=== PATIENT | female | born 1990 | race Caucasian/White ===

== ENCOUNTER 2020-11-08 13:04 | Observation (INO) | payer OTHER ==
[2020-11-08 13:56] VITALS: BP 128/73; PULSE 81; O2SAT 100
== END 2020-11-08 14:05 | disposition home or self-care (01) ==
LOC: OB 13:04
PROVIDERS: ADMIT Obstetrics & Gynecology; ATTEND Obstetrics & Gynecology
DX: Z34.83 Encounter for supervision of other normal pregnancy, third trimester (principal); Z3A.33 33 weeks gestation of pregnancy
CPT/HCPCS: 59025; G0378

== ENCOUNTER 2020-11-15 11:55 | Observation (INO) | payer OTHER ==
[2020-11-15 12:14] VITALS: BP 127/81; PULSE 83
== END 2020-11-15 12:30 | disposition home or self-care (01) ==
LOC: OB 11:55
PROVIDERS: ADMIT Obstetrics & Gynecology; ATTEND Obstetrics & Gynecology
DX: Z34.83 Encounter for supervision of other normal pregnancy, third trimester (principal); Z3A.34 34 weeks gestation of pregnancy
CPT/HCPCS: 59025; G0378

== ENCOUNTER 2020-11-23 10:33 | Observation (INO) | payer OTHER ==
[2020-11-23 11:03] VITALS: BP 121/73; PULSE 75
== END 2020-11-23 11:25 | disposition home or self-care (01) ==
LOC: OB 10:33
PROVIDERS: ADMIT Obstetrics & Gynecology; ATTEND Obstetrics & Gynecology
DX: Z34.83 Encounter for supervision of other normal pregnancy, third trimester (principal); Z3A.35 35 weeks gestation of pregnancy
CPT/HCPCS: 59025; G0378

== ENCOUNTER 2020-11-30 08:50 | Observation (INO) | payer OTHER ==
[2020-11-30 10:55] VITALS: BP 122/79; PULSE 86
--- NOTE | 2020-11-30 11:43 | XRAY ---
Indication: growth. Two-dimensional OB ultrasound performed. Comparison: 2020. There is again a single viable intrauterine in cephalic presentation. heart rate 139 BPM. anatomy previously documented. Posterior placenta without abruption/previa. BPD measures 8.95 cm corresponding to 36 weeks 2 days. HC measures 31.74 cm corresponding to 35 weeks 5 days. AC measures 32.17 cm corresponding to 36 weeks 1 days. FL measures 7.10 cm corresponding to 36 weeks 3 days. Estimated weight 6 lbs. 5 oz., +/-15 ounces. Approximately 36 percentile. SYED is 18.9 cm. Impression: Single viable intrauterine with mean gestational age 36 weeks 1 day. Normal progression of . No new/acute findings.
== END 2020-11-30 11:35 | disposition home or self-care (01) ==
LOC: EDSTATUS 09:55 → OB 09:56
PROVIDERS: ADMIT Obstetrics & Gynecology; ATTEND Obstetrics & Gynecology
DX: O36.5930 Maternal care for other known or suspected poor fetal growth, third trimester, not applicable or unspecified (principal); Z3A.36 36 weeks gestation of pregnancy
CPT/HCPCS: 59025; 76816; G0378

== ENCOUNTER 2020-12-05 09:54 | Observation (INO) | payer OTHER ==
[2020-12-05 10:28] VITALS: BP 132/82; PULSE 73; O2SAT 100
== END 2020-12-05 10:46 | disposition home or self-care (01) ==
LOC: OB 09:54
PROVIDERS: ADMIT Obstetrics & Gynecology; ATTEND Obstetrics & Gynecology
DX: O36.5930 Maternal care for other known or suspected poor fetal growth, third trimester, not applicable or unspecified (principal)
CPT/HCPCS: 59025; G0378

== ENCOUNTER 2020-12-06 08:45 | Inpatient (IN) | payer OTHER ==
[2020-12-06] MEDS ORDERED: Zofran 4 MG/2 ML VIAL IV PRN (09:11)
[2020-12-06] MEDS: Lactated Ringers 1,000 ML IV SCH ×2 (09:27→20:00)
[2020-12-06] MEDS ORDERED: PITOCIN 30 UNITS/ LR 500 ML 30 UNITS/500 ML IV.SOLN. IV SCH (09:30)
[2020-12-06 09:39] LABS: Absolute Neutrophil Ct (ANC) 14.29 (1.4-6.9); BASOPHIL % 0.1 % (0.0-0.4); Basophil (Absolute #) 0.02 (0-0.4); Eosinophil % 0.4 % (0.00-5.0); Eosinophil (Absolute #) 0.06 (0-0.5); Hematocrit 41.8 % (35-47); Hemoglobin 13.8 gm/dl (12.0-16.0); Lymphocyte (Absolute #) 1.41 (1.0-4.6); Lymphocytes % 8.6 % (24.0-44.0); Mean Corpuscular Hemoglobin 31.4 pg (26-32); Mean Platelet Volume 10.2 fl (7.5-11.0); Monocyte (Absolute #) 0.65 (0.0-1.3); Neutrophil % 86.9 % (36.0-66.0); Platelet Count 282 K/mm3 (150-450); Red Cell Distribution Width 13.5 % (11.5-14.0); White Blood Count 16.4 K/mm3 (4.0-10.5)
[2020-12-06] MEDS ORDERED: XYLOCAINE 1% HCL 20 ML MDV IJ PRN (09:52)
[2020-12-06] MEDS ORDERED: NORCO 5/325 MG PO PRN (09:53)
[2020-12-06] MEDS ORDERED: TUCKS TP PRN (09:53)
[2020-12-06] MEDS ORDERED: Dermoplast Spray TP PRN (09:53)
[2020-12-06] MEDS ORDERED: CORTISONE 1% CREAM TP PRN (09:53)
[2020-12-06] MEDS ORDERED: LANSINOH 40 GM TOP PRN (09:53)
[2020-12-06] MEDS ORDERED: Mylicon 80MG PO PRN (09:53)
[2020-12-06] MEDS: MOTRIN 400 MG PO PRN ×2 (11:01→19:55)
[2020-12-06 12:35] LABS: Amphetamine,Urine NEGATIVE (NEGATIVE); Barbiturate,Urine NEGATIVE (NEGATIVE); Benzodiazepine,Urine NEGATIVE (NEGATIVE); Cocaine,Urine NEGATIVE (NEGATIVE); Methadone,Urine NEGATIVE (NEGATIVE); Opiate,Urine NEGATIVE (NEGATIVE); PCP,Urine NEGATIVE (NEGATIVE); THC,Urine NEGATIVE (NEGATIVE)
[2020-12-06] MEDS: TYLENOL EXTRA STRENGTH 500 MG PO PRN (16:19)
[2020-12-06] MEDS ORDERED: TRANEXAMIC ACID 1000 MG/10 ML 1,000 MG in Sodium Chloride 0.9% 100 ML BAG 100 ML IV ONE (18:36)
[2020-12-06] MEDS ORDERED: TRANEXAMIC ACID 1000 MG/10 ML ONE (18:39)
[2020-12-06] MEDS ORDERED: Sodium Chloride 0.9% 100 ML BAG 100 ML IV ONE (18:39)
[2020-12-06] MEDS: Colace 100 MG PO SCH (21:08)
[2020-12-06] MEDS ORDERED: Adacel Vial IM ONE (21:22)
[2020-12-07] MEDS: MOTRIN 400 MG PO PRN ×3 (02:17→15:11)
[2020-12-07 03:27] LABS: Absolute Neutrophil Ct (ANC) 12.18 (1.4-6.9); BASOPHIL % 0.1 % (0.0-0.4); Basophil (Absolute #) 0.02 (0-0.4); Eosinophil % 0.6 % (0.00-5.0); Eosinophil (Absolute #) 0.09 (0-0.5); Hematocrit 30.5 % (35-47); Lymphocyte (Absolute #) 2.01 (1.0-4.6); Lymphocytes % 13.2 % (24.0-44.0); Mean Cell Volume 96.2 fl (78-100); Mean Corpuscular Hemoglobin 31.5 pg (26-32); Mean Corpuscular Hgb Concent. 32.8 g/dl (32-36); Mean Platelet Volume 9.9 fl (7.5-11.0); Monocyte (Absolute #) 0.92 (0.0-1.3); Neutrophil % 80.1 % (36.0-66.0); Platelet Count 258 K/mm3 (150-450); Red Blood Count 3.17 M/mm3 (4.1-5.4); Red Cell Distribution Width 13.3 % (11.5-14.0); White Blood Count 15.2 K/mm3 (4.0-10.5)
[2020-12-07 04:09] VITALS: O2SAT 97
[2020-12-07] MEDS ORDERED: FERREX 150 PO SCH (10:00)
[2020-12-07] MEDS: Colace 100 MG PO SCH (10:09)
[2020-12-07] MEDS ORDERED: Adacel Vial IM ONE (12:00)
[2020-12-07] MEDS: TYLENOL EXTRA STRENGTH 500 MG PO PRN (12:14)
[2020-12-07 16:16] VITALS: BP 117/59; PULSE 75
== END 2020-12-07 17:25 | disposition home or self-care (01) | DRG 807 ==
LOC: OB 08:45 → OBSVTOIN 08:45
PROVIDERS: ADMIT Obstetrics & Gynecology; ATTEND Obstetrics & Gynecology
PROC: 10E0XZZ Delivery of Products of Conception, External Approach (ICD-10-PCS; principal; 2020-12-06)
DX: O80 Encounter for full-term uncomplicated delivery (principal); Z37.0 Single live birth; Z3A.37 37 weeks gestation of pregnancy
CPT/HCPCS: 36415; 59400; 80307; 84112; 85025; 87340; 90715; 96372; G0378; J2590; A9270-GY

== ENCOUNTER 2023-08-18 14:23 | Observation (INO) | payer OTHER ==
[2023-08-18 15:02] LABS: Appearance Cloudy (Clear); Bacteria None Seen /HPF (None Seen); Bilirubin Negative (Negative); Blood Negative (Negative); Epithelial Cells Moderate /HPF (None Seen); Glucose, Urine Negative (Negative); Hyaline Casts NONE SEEN /LPF (0-2); Ketones 15 (Negative); Leukocyte Esterase Small (Negative); Nitrite Negative (Negative); Ph 6.5 (4.6-8.0); Protein,Urine Dip Negative (Negative); RBC 0-2 /HPF (0-5); Specific Gravity <=1.005 (1.005-1.030); Urobilinogen 0.2 mg/dL (0.2)
[2023-08-18 15:09] LABS: ADD URINE CULTURE? NO (NO)
[2023-08-18 15:15] LABS: Amphetamine,Urine NEGATIVE (NEGATIVE); Barbiturate,Urine NEGATIVE (NEGATIVE); Benzodiazepine,Urine NEGATIVE (NEGATIVE); Cocaine,Urine NEGATIVE (NEGATIVE); Methadone,Urine NEGATIVE (NEGATIVE); Opiate,Urine NEGATIVE (NEGATIVE); PCP,Urine NEGATIVE (NEGATIVE); THC,Urine NEGATIVE (NEGATIVE)
[2023-08-18] MEDS ORDERED: CEFAZOLIN 2 GM-D5W BAG** 2 GM/50 ML ML IV STA (15:22)
[2023-08-18] MEDS ORDERED: Lactated Ringers 500 ML IV ONE (15:22)
[2023-08-18 15:27] VITALS: RESP 14
--- NOTE | 2023-08-18 17:23 | PCM.NOTE ---
Date and Time: 08/18/231714 Subjective Assessment: 33yo at 27 0/7 presented to labor and delivery complaining of contractions that are every 2-5 minutes and painful/uncomfortable. 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 Patient reports good movement. Patient denies SROM or vaginal bleeding. O- VSS afebrile. Chest: CTA, no rales, wheezes or rhonchi. Ht: RRR without murmur or gallop. Abdomen: Soft to palpation. Non-tender to palpation. Ext: No edema. Urine: Positive for WBC and Leukocytes. monitor: Baseline: 140 with variability present. Contractions are Q 2- 5minutes. Palpation moderate to mild. Since IV hydration patient states they are less intense than they were on presentation. CX: FT/Mulitparous/Long/-3/soft No change in cervical exam times two by same examiner. A- Uterine Irritability with Probable UTI P- IV hydration, Ancef 2 grams. Discharge to home. Continue to drink water ever y tet75-96 ounces. If Contractions return to painful she needs to return to labor and Delivery. OBJECTIVE DATA Vital Signs: Vital Signs - 24 hr Temp Pulse Resp BP BP Pulse Ox 08/18/23 15:00 97.8 F 82 14 137/74 100 08/18/23 14:40 97.6 F 82 14 137/74 100 Pain Assessment - Last Documented Pain Intensity 2 Intake and Output: Intake & Output 08/16/23 08/17/23 08/18/23 08/19/23 11:59 11:59 11:59 11:59 Weight 78.471 kg Lab Results: Lab Results-Last 24 Hours 08/18/23 08/18/23 Range/Units 14:50 14:50 Urine Color Yellow (Yellow) Urine Appearance Cloudy A (Clear) Urine pH 6.5 (4.6-8.0) Ur Specific [place] <=1.005 (1.005-1.030) Urine Protein Negative (Negative) Urine Glucose (UA) Negative (Negative) mg/dL Urine Ketones 15 A (Negative) Urine Blood Negative (Negative) Urine Nitrite Negative (Negative) Urine Bilirubin Negative (Negative) Urine Urobilinogen 0.2 (0.2) mg/dL Ur Leukocyte Esterase Small A (Negative) U Hyaline Cast (Auto) NONE SEEN (0-2) /LPF Urine Microscopic RBC 0-2 (0-5) /HPF Urine Microscopic WBC 6-10 A (0-5) /HPF Ur Epithelial Cells Moderate A (None Seen) /HPF Urine Bacteria None Seen (None Seen) /HPF Urine Culture Reflexed NO (NO) Urine Opiates Level NEGATIVE (NEGATIVE) Ur Methadone NEGATIVE (NEGATIVE) Urine Barbiturates NEGATIVE (NEGATIVE) Ur Phencyclidine (PCP) NEGATIVE (NEGATIVE) Urine Amphetamine NEGATIVE (NEGATIVE) U Benzodiazepine Level NEGATIVE (NEGATIVE) Urine Cocaine NEGATIVE (NEGATIVE) Urine Marijuana (THC) NEGATIVE (NEGATIVE)
[2023-08-18 19:13] VITALS: BP 117/62; PULSE 72; TEMP 98.5; O2SAT 97
== END 2023-08-18 19:30 | disposition home or self-care (01) ==
LOC: OB 14:23
PROVIDERS: ADMIT Obstetrics & Gynecology; ATTEND Obstetrics & Gynecology
DX: Z34.82 Encounter for supervision of other normal pregnancy, second trimester (principal); Z3A.27 27 weeks gestation of pregnancy
CPT/HCPCS: 80307; 81001; J0690

== ENCOUNTER 2023-08-21 10:41 | Observation (INO) | payer OTHER ==
[2023-08-21] MEDS ORDERED: Lactated Ringers 1,000 ML IV SCH (12:00)
[2023-08-21 12:36] LABS: Hematocrit 35.1 % (35-47); Hemoglobin 11.8 g/dL (12.0-16.0); Mean Cell Volume 94.4 fL (78-100); Mean Corpuscular Hemoglobin 31.7 pg (26-32); Mean Corpuscular Hgb Concent. 33.6 g/dL (32-36); Mean Platelet Volume 9.4 fL (7.5-11.0); Platelet Count 269 x10^3/uL (150-450); Red Blood Count 3.72 x10^6/uL (4.1-5.4); Red Cell Distribution Width 12.8 % (11.5-14.0); White Blood Count 11.6 x10^3/uL (4.0-10.5)
[2023-08-21 12:42] LABS: ALBUMIN 3.8 g/dL (3.5-5.0); ANION GAP 8.5 MEQ/L (5-15); BILIRUBIN,TOTAL 0.4 mg/dL (0.2-1.3); Calcium 8.8 mg/dL (8.4-10.2); Creatinine 1 0.33 mg/dL (0.52-1.04); EST GLOMERULAR FILTRATION RATE 138.6 ML/MIN; Potassium 3.8 mmol/L (3.5-5.1); Total Protein 7.1 g/dL (6.3-8.2)
[2023-08-21 12:44] VITALS: PULSE 86; RESP 18; TEMP 97.5; O2SAT 97
[2023-08-21 12:56] LABS: Appearance Clear (Clear); Bacteria None Seen /HPF (None Seen); Bilirubin Negative (Negative); Blood Negative (Negative); Epithelial Cells None Seen /HPF (None Seen); Glucose, Urine Negative (Negative); Hyaline Casts NONE SEEN /LPF (0-2); Ketones Negative (Negative); Leukocyte Esterase Negative (Negative); Nitrite Negative (Negative); Ph 7.5 (4.6-8.0); Protein,Urine Dip Negative (Negative); RBC 0-2 /HPF (0-5); Specific Gravity <=1.005 (1.005-1.030); Urobilinogen 0.2 mg/dL (0.2); WBC 0-2 /HPF (0-5)
[2023-08-21 12:57] LABS: ADD URINE CULTURE? NO (NO)
[2023-08-21 13:04] VITALS: BP 125/73
--- NOTE | 2023-08-21 13:08 | XRAY ---
Indication: well being. Evaluate cervical length. Limited OB ultrasound demonstrates single intrauterine in cephalic presentation with heart rate 163 bpm. 4 quadrant SYED is 15 cm. Cervical length is 3.5 cm.
== END 2023-08-21 14:20 | disposition home or self-care (01) ==
LOC: OB 11:15
PROVIDERS: ADMIT Family Medicine; ATTEND Family Medicine
DX: Z34.82 Encounter for supervision of other normal pregnancy, second trimester (principal); Z3A.27 27 weeks gestation of pregnancy
CPT/HCPCS: 36415; 76815; 80053; 81001; 85027; 99213; G0378; G0379

== ENCOUNTER 2023-10-22 12:22 | Observation (INO) | payer OTHER ==
[2023-10-22 13:03] LABS: Appearance Clear (Clear); Bacteria None Seen /HPF (None Seen); Bilirubin Negative (Negative); Blood Negative (Negative); Epithelial Cells Moderate /HPF (None Seen); Glucose, Urine Negative (Negative); Hyaline Casts NONE SEEN /LPF (0-2); Ketones 15 (Negative); Leukocyte Esterase Moderate (Negative); Nitrite Negative (Negative); Protein,Urine Dip Negative (Negative); RBC 0-2 /HPF (0-5); Urobilinogen 0.2 mg/dL (0.2)
[2023-10-22 13:12] LABS: ADD URINE CULTURE? YES (NO)
[2023-10-22] MEDS: Zofran 4 MG/2 ML VIAL IV ONE (13:38)
[2023-10-22] MEDS: Lactated Ringers 1,000 ML IV ONE (13:42)
[2023-10-22 14:09] VITALS: BP 136/84; PULSE 86; RESP 16; TEMP 97.9; O2SAT 99
[2023-10-22 21:49] LABS: Amphetamine,Urine SEE SEPARATE REPORT (NEGATIVE); Barbiturate,Urine SEE SEPARATE REPORT (NEGATIVE); Benzodiazepine,Urine SEE SEPARATE REPORT (NEGATIVE); Cocaine,Urine SEE SEPARATE REPORT (NEGATIVE); Methadone,Urine SEE SEPARATE REPORT (NEGATIVE); Opiate,Urine SEE SEPARATE REPORT (NEGATIVE); PCP,Urine SEE SEPARATE REPORT (NEGATIVE); THC,Urine SEE SEPARATE REPORT (NEGATIVE)
== END 2023-10-22 16:01 | disposition home or self-care (01) ==
LOC: OB.NST 12:22 → OB 12:23
PROVIDERS: ADMIT Family Medicine; ATTEND Family Medicine
DX: Z34.83 Encounter for supervision of other normal pregnancy, third trimester (principal); Z3A.36 36 weeks gestation of pregnancy
CPT/HCPCS: 59025; 80307; 81001; 87086; 99213; G0378; J2405

== ENCOUNTER 2023-11-16 13:32 | Inpatient (IN) | payer OTHER ==
[2023-11-16] MEDS ORDERED: Zofran 4 MG/2 ML VIAL IV PRN (13:57)
[2023-11-16] MEDS ORDERED: Anucort-HC SUPPOSITORY PR PRN (14:12)
[2023-11-16] MEDS ORDERED: Mylicon 80MG PO PRN (14:12)
[2023-11-16] MEDS ORDERED: TYLENOL EXTRA STRENGTH 500 MG PO PRN ×2 (14:12)
[2023-11-16] MEDS ORDERED: STADOL 2 MG IV PRN (14:12)
[2023-11-16] MEDS ORDERED: CORTISONE 1% CREAM TP PRN (14:12)
[2023-11-16] MEDS ORDERED: NORCO 5/325 MG PO PRN (14:12)
[2023-11-16] MEDS ORDERED: Nubain 10 MG/ML IV PRN (14:12)
[2023-11-16] MEDS ORDERED: Ambien 10 MG PO PRN (14:12)
[2023-11-16] MEDS ORDERED: Dulcolax 10 MG SUPP PR PRN (14:12)
--- NOTE | 2023-11-16 14:23 | PCM.HP ---
History of Present Illness - Chief Complaint Chief Complaint: Labor pain Date: 11/16/23 History of Present Illness: Ms. Jennyfer SIDHU is a 33 year old white female, at 39w5d gestational age uncomplicated intrauterine who presents to L&D this afternoon with painful uterine contractions. She had an office visit this morning at which time membranes were stripped. The membranes are intact. Good movement. Objective: Vital signs as per nursing intake assessment General: healthy appearing, pleasant white female in mild labor distress Heart: RRR, no murmur Lungs: CTA Bilaterally Abdomen: soft, gravid, non-tender Cervix: 6-7 cm, 80%, soft, posterior. The vertex is at -1 station. Assessment: 39w5d IUP in early labor Plan: Admit and monitor Will plan for amniotomy once IV access established and initial monitoring completed Anticipate vaginal delivery Medications & Allergies Home Medications: Home Medication List Vits W-Ca,Fe,FA(<1Mg) [] 1 mg PO DAILY 11/08/20 [History Confirmed 10/22/23] Docusate Sodium 100 mg [Colace 100 MG] 100 mg PO DAILY 12/05/20 [History Confirmed 10/22/23] Amoxicillin 500 mg PO TID 10/22/23 [History Confirmed 10/22/23] Allergies/Adverse Reactions: Allergies Allergy/AdvReac Type Severity Reaction Status Date / Time No Known Drug Allergies Allergy Verified 11/23/20 11:03 - Past Medical History Past Medical History: Yes Neurological History: No Pertinent History ENT History: No Pertinent History Cardiac History: No Pertinent History Endocrine Medical History: No Pertinent History Musculoskelatal History: No Pertinent History GI Medical History: No Pertinent History Reproductive Disorders: No Pertinent History Comment: 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 2013 - Past Surgical History Past Surgical History: Yes Neuro Surgical History: No Pertinent History Cardiac History: No Pertinent History Respiratory Surgery: No Pertinent History GI Surgical History: Appendectomy Genitourinary Surgical Hx: No Pertinent History Musculskeletal Surgical Hx: No Pertinent History Female Surgical History: No Pertinent History - Social History Smoking Status: Former smoker How long have you smoked: 15 years Exposure to second hand smoke: No Alcohol: None Drug Use: none - Social Determinants of Health Will the patient participate in the screening: Yes Do you worry about a steady place to live?: No In the past 12 months,have you had to go without utilities?: No Have you or anyone in your house had to go without enough: No Transportation Issues: No Has anyone in your support network made you feel unsafe?: No Does the patient want assistance with any of the above?: No
[2023-11-16 14:27] LABS: Absolute Neutrophil Ct (ANC) 9.34 x10^3/uL (1.4-6.9); BASOPHIL % 0.2 % (0.0-0.4); Basophil (Absolute #) 0.02 x10^3/uL (0-0.4); Eosinophil % 0.4 % (0.00-5.0); Eosinophil (Absolute #) 0.05 x10^3/uL (0-0.5); Hematocrit 38.1 % (35-47); Hemoglobin 12.8 g/dL (12.0-16.0); IMMATURE GRAN # 0.08 x10^3u/L (0.00-0.03); IMMATURE GRAN % 0.7 % (0.00-0.4); Lymphocytes % 13.1 % (24.0-44.0); Mean Cell Volume 93.8 fL (78-100); Mean Corpuscular Hemoglobin 31.5 pg (26-32); Mean Corpuscular Hgb Concent. 33.6 g/dL (32-36); Monocyte (Absolute #) 0.42 x10^3/uL (0.0-1.3); Monocytes % 3.7 % (0.0-12.0); Neutrophil % 81.9 % (36.0-66.0); Platelet Count 242 x10^3/uL (150-450); Red Blood Count 4.06 x10^6/uL (4.1-5.4); Red Cell Distribution Width 13.4 % (11.5-14.0); White Blood Count 11.4 x10^3/uL (4.0-10.5)
[2023-11-16] MEDS ORDERED: Lactated Ringers 1,000 ML IV SCH (14:30)
[2023-11-16 14:46] LABS: Amphetamine,Urine NEGATIVE (NEGATIVE); Barbiturate,Urine NEGATIVE (NEGATIVE); Benzodiazepine,Urine NEGATIVE (NEGATIVE); Cocaine,Urine NEGATIVE (NEGATIVE); Methadone,Urine NEGATIVE (NEGATIVE); Opiate,Urine NEGATIVE (NEGATIVE); PCP,Urine NEGATIVE (NEGATIVE); THC,Urine NEGATIVE (NEGATIVE)
--- NOTE | 2023-11-16 14:49 | PCM.NOTE ---
Date and Time: 11/16/23 1440 Subjective Assessment: Amniotomy performed - clear fluid. Cervix: 8cm, 80% Category 1 heart rate pattern. Objective Data Lab Results: Lab Results-Last 24 Hours 11/16/23 Range/Units 14:16 WBC 11.4 H (4.0-10.5) x10^3/uL RBC 4.06 L (4.1-5.4) x10^6/uL Hgb 12.8 (12.0-16.0) g/dL Hct 38.1 (35-47) % MCV 93.8 (78-100) fL MCH 31.5 (26-32) pg MCHC 33.6 (32-36) g/dL RDW 13.4 (11.5-14.0) % Plt Count 242 (150-450) x10^3/uL MPV 11.0 (7.5-11.0) fL Gran % 81.9 H (36.0-66.0) % Immature Gran % (Auto) 0.7 H (0.00-0.4) % Nucleat RBC Rel Count 0.0 (0.00-0.1) % Eos # (Auto) 0.05 (0-0.5) x10^3/uL Immature Gran # (Auto) 0.08 H (0.00-0.03) x10^3u/L Absolute Lymphs (auto) 1.50 (1.0-4.6) x10^3/uL Absolute Monos (auto) 0.42 (0.0-1.3) x10^3/uL Absolute Nucleated RBC 0.00 (0.00-0.01) x10^3u/L Lymphocytes % 13.1 L (24.0-44.0) % Monocytes % 3.7 (0.0-12.0) % Eosinophils % 0.4 (0.00-5.0) % Basophils % 0.2 (0.0-0.4) % Absolute Granulocytes 9.34 H (1.4-6.9) x10^3/uL Basophils # 0.02 (0-0.4) x10^3/uL
[2023-11-16] MEDS: Lactated Ringers 1,000 ML IV SCH (15:00)
[2023-11-16 15:02] LABS: ABO TYPING A
[2023-11-16 15:03] LABS: Antibody Screen NEGATIVE (NEGATIVE); RH TYPING POSITIVE
[2023-11-16] MEDS: PITOCIN 30 UNITS/ LR 500 ML 30 UNITS/500 ML PLAST..BAG IV SCH (15:15)
[2023-11-16] MEDS: MOTRIN 400 MG PO PRN (16:18)
--- NOTE | 2023-11-16 17:04 | PCM.NOTE ---
Date and Time: 11/16/23 1703 Subjective Assessment: Normal spontaneous vaginal delivery over intact perineum. Viable male infant. Apgars and weight pending. A small, right-sided periurethral laceration was bleeding and required 2 simple interrupted sutures. Objective Data Vital Signs: Vital Signs - 24 hr Pulse Resp Pulse Ox 11/16/23 14:00 81 16 98 Lab Results: Lab Results-Last 24 Hours 11/16/23 11/16/23 11/16/23 Range/Units 14:16 14:16 14:16 WBC 11.4 H (4.0-10.5) x10^3/uL RBC 4.06 L (4.1-5.4) x10^6/uL Hgb 12.8 (12.0-16.0) g/dL Hct 38.1 (35-47) % MCV 93.8 (78-100) fL MCH 31.5 (26-32) pg MCHC 33.6 (32-36) g/dL RDW 13.4 (11.5-14.0) % Plt Count 242 (150-450) x10^3/uL MPV 11.0 (7.5-11.0) fL Gran % 81.9 H (36.0-66.0) % Immature Gran % (Auto) 0.7 H (0.00-0.4) % Nucleat RBC Rel Count 0.0 (0.00-0.1) % Eos # (Auto) 0.05 (0-0.5) x10^3/uL Immature Gran # (Auto) 0.08 H (0.00-0.03) x10^3u/L Absolute Lymphs (auto) 1.50 (1.0-4.6) x10^3/uL Absolute Monos (auto) 0.42 (0.0-1.3) x10^3/uL Absolute Nucleated RBC 0.00 (0.00-0.01) x10^3u/L Lymphocytes % 13.1 L (24.0-44.0) % Monocytes % 3.7 (0.0-12.0) % Eosinophils % 0.4 (0.00-5.0) % Basophils % 0.2 (0.0-0.4) % Absolute Granulocytes 9.34 H (1.4-6.9) x10^3/uL Basophils # 0.02 (0-0.4) x10^3/uL Urine Opiates Level NEGATIVE (NEGATIVE) Ur Methadone NEGATIVE (NEGATIVE) Urine Barbiturates NEGATIVE (NEGATIVE) Ur Phencyclidine (PCP) NEGATIVE (NEGATIVE) Urine Amphetamine NEGATIVE (NEGATIVE) U Benzodiazepine Level NEGATIVE (NEGATIVE) Urine Cocaine NEGATIVE (NEGATIVE) Urine Marijuana (THC) NEGATIVE (NEGATIVE) ABO Group A Rh Factor POSITIVE Antibody Screen NEGATIVE (NEGATIVE)
[2023-11-16] MEDS: XYLOCAINE 1% HCL 20 ML MDV IJ PRN (19:36)
[2023-11-16] MEDS: TUCKS TP PRN (19:43)
[2023-11-16] MEDS: Dermoplast Spray TP PRN (19:43)
[2023-11-16] MEDS: LANSINOH 40 GM TOP PRN (21:11)
[2023-11-16] MEDS: Docusate Sodium 100 MG PO SCH (22:22)
[2023-11-17 05:21] LABS: Absolute Neutrophil Ct (ANC) 10.41 x10^3/uL (1.4-6.9); BASOPHIL % 0.2 % (0.0-0.4); Basophil (Absolute #) 0.03 x10^3/uL (0-0.4); Eosinophil % 0.8 % (0.00-5.0); Eosinophil (Absolute #) 0.11 x10^3/uL (0-0.5); Hemoglobin 11.8 g/dL (12.0-16.0); IMMATURE GRAN # 0.06 x10^3u/L (0.00-0.03); IMMATURE GRAN % 0.5 % (0.00-0.4); Lymphocyte (Absolute #) 1.79 x10^3/uL (1.0-4.6); Lymphocytes % 13.6 % (24.0-44.0); Mean Cell Volume 93.1 fL (78-100); Mean Corpuscular Hemoglobin 31.4 pg (26-32); Mean Corpuscular Hgb Concent. 33.7 g/dL (32-36); Mean Platelet Volume 10.5 fL (7.5-11.0); Monocyte (Absolute #) 0.72 x10^3/uL (0.0-1.3); Monocytes % 5.5 % (0.0-12.0); Neutrophil % 79.4 % (36.0-66.0); Platelet Count 177 x10^3/uL (150-450); Red Blood Count 3.76 x10^6/uL (4.1-5.4); Red Cell Distribution Width 13.2 % (11.5-14.0); White Blood Count 13.1 x10^3/uL (4.0-10.5)
[2023-11-17 08:37] VITALS: RESP 14
--- NOTE | 2023-11-17 09:29 | PCM.DS ---
Discharge Summary Date of Admission: 11/16/23 14:34 Date of Discharge: Jennyfer Guerra is a 33 yo white female who presented to L&D yesterday afternoon in early labor. Amniotomy was performed due to advanced cervical dilation and she progressed to a of a viable male without complication. She has had an uncomplicated course. She denies pain. She reports normal lochia flow. Objective: Afebrile, VSS Abdomen: soft, non-tender, fundus firm Extremities: no calf tenderness Hgb: 11.8 Assessment: Day #1 Plan: Discharge home Admitting Physician: SCOTT ANDINO MD Primary Care Provider: PHANI MARQUEZ Allergies Allergies wheat Allergy (Severe, Verified 11/16/23 19:56) celiac disease Hospital Summary - Vitals & Intake/Output Vital Signs: Vital Signs Temperature 98.1 F 11/17/23 07:00 Pulse Rate 78 11/17/23 07:00 Respiratory Rate 14 11/17/23 07:00 Blood Pressure 107/55 11/17/23 07:00 O2 Sat by Pulse Oximetry 96 11/17/23 07:00 Intake & Output: Intake & Output 11/14/23 11/15/23 11/16/23 11/17/23 11:59 11:59 11:59 11:59 Output Total 700 Balance -700 Weight 84.368 kg - Lab Result Diagrams: 11/17/23 05:24 Lab Results-Last 24 Hrs: Lab Results-Last 24 Hours 11/16/23 11/16/23 11/16/23 Range/Units 14:16 14:16 14:16 WBC 11.4 H (4.0-10.5) x10^3/uL RBC 4.06 L (4.1-5.4) x10^6/uL Hgb 12.8 (12.0-16.0) g/dL Hct 38.1 (35-47) % MCV 93.8 (78-100) fL MCH 31.5 (26-32) pg MCHC 33.6 (32-36) g/dL RDW 13.4 (11.5-14.0) % Plt Count 242 (150-450) x10^3/uL MPV 11.0 (7.5-11.0) fL Gran % 81.9 H (36.0-66.0) % Immature Gran % (Auto) 0.7 H (0.00-0.4) % Nucleat RBC Rel Count 0.0 (0.00-0.1) % Eos # (Auto) 0.05 (0-0.5) x10^3/uL Immature Gran # (Auto) 0.08 H (0.00-0.03) x10^3u/L Absolute Lymphs (auto) 1.50 (1.0-4.6) x10^3/uL Absolute Monos (auto) 0.42 (0.0-1.3) x10^3/uL Absolute Nucleated RBC 0.00 (0.00-0.01) x10^3u/L Lymphocytes % 13.1 L (24.0-44.0) % Monocytes % 3.7 (0.0-12.0) % Eosinophils % 0.4 (0.00-5.0) % Basophils % 0.2 (0.0-0.4) % Absolute Granulocytes 9.34 H (1.4-6.9) x10^3/uL Basophils # 0.02 (0-0.4) x10^3/uL Urine Opiates Level NEGATIVE (NEGATIVE) Ur Methadone NEGATIVE (NEGATIVE) Urine Barbiturates NEGATIVE (NEGATIVE) Ur Phencyclidine (PCP) NEGATIVE (NEGATIVE) Urine Amphetamine NEGATIVE (NEGATIVE) U Benzodiazepine Level NEGATIVE (NEGATIVE) Urine Cocaine NEGATIVE (NEGATIVE) Urine Marijuana (THC) NEGATIVE (NEGATIVE) ABO Group A Rh Factor POSITIVE Antibody Screen NEGATIVE (NEGATIVE) 11/17/23 Range/Units 05:24 WBC 13.1 H (4.0-10.5) x10^3/uL RBC 3.76 L (4.1-5.4) x10^6/uL Hgb 11.8 L (12.0-16.0) g/dL Hct 35.0 (35-47) % MCV 93.1 (78-100) fL MCH 31.4 (26-32) pg MCHC 33.7 (32-36) g/dL RDW 13.2 (11.5-14.0) % Plt Count 177 (150-450) x10^3/uL MPV 10.5 (7.5-11.0) fL Gran % 79.4 H (36.0-66.0) % Immature Gran % (Auto) 0.5 H (0.00-0.4) % Nucleat RBC Rel Count 0.0 (0.00-0.1) % Eos # (Auto) 0.11 (0-0.5) x10^3/uL Immature Gran # (Auto) 0.06 H (0.00-0.03) x10^3u/L Absolute Lymphs (auto) 1.79 (1.0-4.6) x10^3/uL Absolute Monos (auto) 0.72 (0.0-1.3) x10^3/uL Absolute Nucleated RBC 0.00 (0.00-0.01) x10^3u/L Lymphocytes % 13.6 L (24.0-44.0) % Monocytes % 5.5 (0.0-12.0) % Eosinophils % 0.8 (0.00-5.0) % Basophils % 0.2 (0.0-0.4) % Absolute Granulocytes 10.41 H (1.4-6.9) x10^3/uL Basophils # 0.03 (0-0.4) x10^3/uL Urine Opiates Level (NEGATIVE) Ur Methadone (NEGATIVE) Urine Barbiturates (NEGATIVE) Ur Phencyclidine (PCP) (NEGATIVE) Urine Amphetamine (NEGATIVE) U Benzodiazepine Level (NEGATIVE) Urine Cocaine (NEGATIVE) Urine Marijuana (THC) (NEGATIVE) ABO Group Rh Factor Antibody Screen (NEGATIVE) - Discharge Disposition: Home, Self-Care Condition: Stable Prescriptions: No Action Vits W-Ca,Fe,FA(<1Mg) [] 1 mg PO DAILY Docusate Sodium 100 mg [Colace 100 MG] 100 mg PO DAILY Amoxicillin 500 mg PO TID Valacyclovir HCl [Valacyclovir] 1,000 mg PO DAILY Follow up with: PHANI MARQUEZ PA [Primary Care Provider] -
[2023-11-17] MEDS: FERREX 150 PO SCH (10:18)
[2023-11-17] MEDS: Adacel Vial IM ONE (10:19)
[2023-11-17 15:03] VITALS: BP 117/77; PULSE 81; TEMP 97.8; O2SAT 98
== END 2023-11-17 17:48 | disposition home or self-care (01) | DRG 807 ==
LOC: OB 13:32 → OBSVTOIN 14:34 → OB 14:34
PROVIDERS: ADMIT Obstetrics & Gynecology; ATTEND Obstetrics & Gynecology
PROC: 10E0XZZ Delivery of Products of Conception, External Approach (ICD-10-PCS; principal; 2023-11-16)
PROC: 0HQ9XZZ Repair Perineum Skin, External Approach (ICD-10-PCS; 2023-11-16)
DX: O70.0 First degree perineal laceration during delivery (principal); Z37.0 Single live birth; Z3A.39 39 weeks gestation of pregnancy
CPT/HCPCS: 36415; 59409; 80307; 85025; 86850; 86900; 86901; 90715; 96372; J2590; A9270-GY